=== PATIENT | male | born 1985 | race Caucasian/White ===

== ENCOUNTER → 2016-12-14 | Day surgery (SDC) | payer BC ==
[~2016-12-14] VITALS: Ht 185.4 cm; Wt 85.0 kg
[~2016-12-14] MED LIST: ACETAMINOPHEN 1000 MG/100 ML VIAL IV ONE; CLINDAMYCIN INJ 900 MG in SODIUM CHLORIDE 0.9% INJ 100 ML IV SCH; CLINDAMYCIN PHOS 900 MG/6 ML VIAL ONE; DEXT 5%-NACL 0.45% 1000 ML INJ 1,000 ML IV SCH; INSULIN HUMAN REGULAR 1,000 UNITS/10 ML VIAL SQ PRN; LACTATED RINGER'S 1000 ML INJ 1,000 ML IV ONE; LACTATED RINGER'S 1000 ML IV SCH; METOPROLOL TARTRATE 25 MG TAB PO PRN; MIDAZOLAM HCL 2 MG/2 ML VIAL ONE; ONDANSETRON HCL 4 MG/2 ML VIAL IV PUSH ONE; POVIDONE IODINE 10% OINT 1 PACKET TOP ONE; PROPOFOL 200 MG/20 ML AMP IV ONE; SODIUM CHLORID 0.9% 500 ML IV SCH; SODIUM CHLORIDE 0.9% FLUSH 5 ML FLUSH IVF PRN; SODIUM CHLORIDE 0.9% FLUSH 5 ML FLUSH IVF SCH; SODIUM CHLORIDE 0.9% INJ 100 ML ONE; TRAM50TA PO
[2016-12-14 08:12] VITALS: BP 148/87; PULSE 90; RESP 18; TEMP 98.1; O2SAT 99
[2016-12-14 08:41] LABS: AUTOMATED NEUTROPHIL # 3.6 TH/MM3 (1.8-7.7); BASOPHIL % 0.4 % (0.0-2.0); EOSINOPHIL % 0.5 % (0.0-4.0); HEMATOCRIT 44.1 % (39.0-51.0); HEMO FLAGS DIFF FINAL; LYMPH % 31.4 % (9.0-44.0); LYMPHOCYTE # 1.9 TH/MM3 (1.0-4.8); MEAN CELL VOLUME 82.5 FL (80.0-100.0); MEAN CORPUSCULAR HEMOGLOBIN 29.2 PG (27.0-34.0); MEAN CORPUSCULAR HGB CONC 35.4 % (32.0-36.0); MONO % 7.6 % (0.0-8.0); NEUT % 60.1 % (16.0-70.0); PLATELET COUNT 200 TH/MM3 (150-450); RED BLOOD COUNT 5.34 MIL/MM3 (4.50-5.90); WHITE BLOOD COUNT 6.1 TH/MM3 (4.0-11.0)
--- NOTE | 2016-12-14 09:07 | HP.UPD ---
H&P Update Date: Dec 14, 2016 Note The Pre-Admit History and Physical Examination regarding the above named patient was reviewed (including, but not limited to, vital signs, medications, allergies, co-morbid conditions), and upon re-examination it is noted that: Indicated with "X" x - the patient's condition has not significantly changed since the last examination. [] - the patient's condition has changed since the last examination. Changes: Donna Tierney MD Dec 14, 2016 09:07
[2016-12-14] MEDS: BUPIVACAINE HCL PF 0.5% 30 ML VIAL ONE ×2 (09:52→09:55)
--- NOTE | 2016-12-14 11:28 | HHI.PR ---
Immediate Post Op Note Procedure Date: Dec 14, 2016 Pre Op Diagnosis: (1) Closed fracture of hook of hamate bone Post Op Diagnosis: (1) Closed fracture of hook of hamate bone (2) Other injury of intrinsic muscle, fascia and tendon of unspecified finger at wrist and hand level, initial encounter Surgeon: Donna Tierney Power Shovel Operator(s): None. Procedure: 1. Excision of left hamate hook. 2. Excision of torn muscle origin deep flexor tendon. Findings: Lumbrical appeared to have been torn from the deep flexor to the ring finger. Anesthesia: General Drains: None Tourniquet time (min at mmHg) 57 minutes at 220 mmHg Patient to: PACU Patient Condition: Good Date/Time of Procedure: SEE SURGICAL CARE RECORD Donna Tierney MD Dec 14, 2016 11:28
[2016-12-14 12:30] VITALS: BP 134/84; PULSE 94; RESP 18; TEMP 98; O2SAT 100
--- NOTE | 2016-12-15 17:37 | MP ---
cc: PIOTR MONET M.D. DATE OF SURGERY: 12/14/2016 PREOPERATIVE DIAGNOSIS 1. 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 2. Injury to the intrinsic muscles of the left hand carpal tunnel. POSTOPERATIVE DIAGNOSIS 1. 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 2. Injury to the intrinsic muscles of the left hand carpal tunnel. PROCEDURE 1. Excision of the hook of the left hAMATE. 2. Excision of torn muscle belly ANESTHESIA General SURGEON Dr. Dana Monet INDICATIONS A 31-year-old male who injured his left hand while bowling. The patient apparently let the ball go off the fingertips which caused extreme pain. 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 The patient continued to have pain. FINDINGS At the completion of the procedure, the fracture fragments of the hook were removed as well as the hook itself. The lumbrical muscle to the ring finger, deep flexor, had been avulsed and was caught up in a significant amount of synovial tissue. This was removed. TOURNIQUET TIME 57 minutes PROCEDURE IN DETAIL The patient was seen preoperatively where the site and side were identified and marked. The patient was then taken to the operating room, placed in a supine position. His identity was checked against the arm band and the consent form, site and side confirmed, time-out called prior to beginning the procedure. The left upper extremity was prepped with Hibiclens and draped in usual sterile fashion. The area to be incised was outlined with a marking pen as a longitudinal incision just to the ulnar side of the midline. The arm was then exsanguinated and a tourniquet inflated to 220 mmHg. Bupivacaine 0.5% plain was used to make a median nerve block at the wrist as well as an ulnar nerve block at the wrist. A 15 blade was then used to make an incision down through the skin down to the subcutaneous tissue down to the palmar fascia. Distally a small hole was poked in the palmar fascia and using the ulnar artery as a guide, Guyon's canal was released. Decision was made to open the carpal tunnel to explore the muscles. The carpal tunnel was then opened by retracting the median nerve and tendon medially, the ulnar nerve ulnarly and using the flexor tendon to the ring finger as a guide, the transverse carpal ligament was divided. Once the forearm fascia was reached, the scissor was kept in a slightly open position using the push technique released for approximately 2-3 cm into the forearm. The nerve was identified and retracted. The carpal tunnels was explored. There was a significant amount of synovitis. A piece of muscle which was attached to healing tendinous material was excised and debrided. Synovectomy was also performed. The fingers were put through a full range of motion and there did not appear to be any significant adhesions between the remaining tendons. Attention then turned to Guyon's canal where the ulnar nerve and artery were retracted ulnarly and mini C-arm was used to identify the position of the hook of the hamate. An incision was made over the hook and, using small osteotomes, the hook was carefully from surrounding structures. It was then removed in toto using a rongeur. It was then filed and smooth down. Once this was completed, the wound was copiously irrigated with saline and closed with a running 4-0 nylon suture. Tourniquet was released after 57 minutes of tourniquet time. Once the tourniquet was released, pressure was applied. After several minutes, there was no evidence of any oozing and a dressing was applied using povidone-iodine ointment, Adaptic Telfa, 4x4s, hand wrap and a palmarly based splint. The patient was then taken from the operating room to the recovery room in satisfactory condition having tolerated the procedure well. Postoperative instructions include keeping the arm elevated, keeping it clean and dry and returning in several days for follow up. The patient was given a prescription for tramadol. MD RICHARD Suárez/ /11:32 AM /5:28 PM
== END | disposition home or self-care (01) ==
LOC: HSDC 07:22
PROVIDERS: ATTEND Specialist
DX: S62.15 Fracture of hook process of hamate [unciform] bone (principal); Y93.54 Activity, bowling
CPT/HCPCS: 01830; 25210; 76000; 85025; J0131; J2250; J2405; J3010; J7120; L3808